=== PATIENT | male | born 1960 | race Caucasian/White ===

== ENCOUNTER 2017-11-10 07:24 | Emergency (ER) | payer BC ==
[~2017-11-10] VITALS: Ht 185.4 cm; Wt 87.9 kg
[~2017-11-10 07:24] MED LIST: LOSARTAN POTAS100 MG PO; MEDROL DOSEPAK4 MG PO
[2017-11-10] MEDS ORDERED: VENTOLIN HFA18 GM IH (08:23)
[2017-11-10] MEDS ORDERED: MOTRIN800 MG PO (08:23)
[2017-11-10] MEDS ORDERED: ZITHROMAX Z-PA250 MG PO (08:23)
[2017-11-10 08:49] VITALS: BP 148/92
== END 2017-11-10 08:50 | disposition home or self-care (01) ==
LOC: EME 07:24
PROVIDERS: Nurse Practitioner Family
DX: J06.9 Acute upper respiratory infection, unspecified (principal); I10 Essential (primary) hypertension; F17.200 Nicotine dependence, unspecified, uncomplicated
CPT/HCPCS: 71046; 87502; 99281; 99284